=== PATIENT | female | born 1950 | race Caucasian/White ===

== ENCOUNTER → 2017-12-19 | Outpatient (CLI) | payer MEDICARE, BC | LOC: MC.RAD 09:50 | DX: Z12.31 Encounter for screening mammogram for malignant neoplasm of breast (principal) ==

== ENCOUNTER → 2020-11-30 | Outpatient (CLI) | payer MEDICARE, BC | LOC: MC.RAD 10:17 | DX: Z12.31 Encounter for screening mammogram for malignant neoplasm of breast (principal) ==

== ENCOUNTER 2021-05-10 15:50 | Outpatient (CLI) | payer MEDICARE, BC ==
[~2021-05-10] VITALS: Ht 162.6 cm; Wt 46.6 kg
[2021-05-10] MEDS ORDERED: PRIL40 PO (16:21)
[2021-05-10] MEDS ORDERED: SYNTHROID0.05 MG/TA PO (16:22)
[2021-05-10] MEDS ORDERED: ESTRACE0.5 MG PO (16:22)
[2021-05-10] MEDS ORDERED: SINGULAIR 110 MG/TAB PO (16:23)
[2021-05-10] MEDS ORDERED: CELEXA 20MG20 MG/TAB PO (16:23)
[2021-05-10] MEDS ORDERED: ZYRTEC 10MG10 MG PO (16:24)
[2021-05-10] MEDS ORDERED: IMITREX100 MG PO (16:24)
[2021-05-10 16:58] VITALS: BP 115/62; PULSE 58; TEMP 98.2
== END 2021-05-10 16:59 | disposition home or self-care (01) ==
LOC: EUO 15:50
DX: M81.0 Age-related osteoporosis without current pathological fracture (principal)
CPT/HCPCS: J3489

== ENCOUNTER → 2021-09-13 | Outpatient (CLI) | payer MEDICARE, BC ==
[~2021-09-13] MED LIST: CELEXA 20MG20 MG/TAB PO; ESTRACE0.5 MG PO; IMITREX100 MG PO; PRIL40 PO; SINGULAIR 110 MG/TAB PO; SYNTHROID0.05 MG/TA PO; ZYRTEC 10MG10 MG PO
== END ==
LOC: COL.PUL 12:02
DX: R05.9 Cough, unspecified (principal)
CPT/HCPCS: J7674

== ENCOUNTER → 2022-02-23 | Outpatient (CLI) | payer MEDICARE, BC | LOC: MC.RAD 13:10 | DX: Z12.31 Encounter for screening mammogram for malignant neoplasm of breast (principal) ==

== ENCOUNTER 2022-08-11 08:48 | Outpatient (CLI) | payer MEDICARE, BC ==
[~2022-08-11] VITALS: Ht 162.6 cm; Wt 48.7 kg
[2022-08-11 09:10] VITALS: BP 102/47; PULSE 59; TEMP 98.2
[2022-08-11] MEDS ORDERED: CLARITIN 1010 MG/TAB PO (09:33)
[2022-08-11] MEDS ORDERED: MIRAPEX 0.0.125 MG/T PO (09:33)
--- NOTE | 2022-08-11 10:00 | NUR ---
IV site wrapped with coban. Pt exits dept with steady gait.
== END 2022-08-11 10:00 | disposition home or self-care (01) ==
LOC: EUO 08:48
DX: M81.0 Age-related osteoporosis without current pathological fracture (principal)
CPT/HCPCS: J3489

== ENCOUNTER → 2023-12-07 | Outpatient (CLI) | payer MEDICARE, BC ==
[~2023-12-07] MED LIST changes: +CLARITIN 1010 MG/TAB PO; +MIRAPEX 0.0.125 MG/T PO; +OSCAL 500 TAB500 MG PO; +VITAMIN D362.5 MC1 PO
== END ==
LOC: MC.RAD 07:04
DX: Z12.31 Encounter for screening mammogram for malignant neoplasm of breast (principal)